=== PATIENT | male | born 1950 | race Caucasian/White ===

== ENCOUNTER 2022-12-14 14:12 | Emergency (ER) | payer OTHER ==
[~2022-12-14] VITALS: Ht 170.2 cm; Wt 118.0 kg
[~2022-12-14 14:12] MED LIST: atenolol
[2022-12-14 17:13] LABS: PROTHROMBIN TIME 10.4 sec (9.6-11.0)
[2022-12-14 17:19] LABS: CHLORIDE 106 mEq/L (98-107)
[2022-12-14 17:23] LABS: HEMATOCRIT. 46.4 % (42.0-52.0); HEMOGLOBIN. 15.9 g/dL (14.0-18.0); MEAN CORPUSCULAR HEMOGLOBIN 29.8 pg (28.0-32.0); MEAN CORPUSCULAR VOLUME 86.9 fL (80.0-94.0); RED BLOOD CELL COUNT 5.34 mill/uL (4.7-6.1)
[2022-12-14 17:28] LABS: CREATINE KINASE 70 IU/L (39-308)
[2022-12-14 17:55] VITALS: BP 146/76
[2022-12-14] MEDS ORDERED: DEXTROSE 50% WATER 50ML SYRINGE IV ONE (18:45)
[2022-12-14 19:22] LABS: CLARITY URINE CLEAR (CLEAR); COLOR URINE YELLOW (YELLOW); KETONES URINE NEGATIVE (NEGATIVE); LEUKOCYTE ESTERASE URINE NEGATIVE (NEGATIVE); NITRITE URINE NEGATIVE (NEGATIVE); OCCULT BLOOD URINE NEGATIVE (NEGATIVE); PH URINE 6.5 (4.5-8.0); PROTEIN URINE NEGATIVE (NEGATIVE); SPECIFIC GRAVITY URINE 1.007 (1.005-1.030); UROBILINOGEN URINE 0.2 E.U./dL (0.2-1.0)
[2022-12-14 22:45] LABS: MEAN PLATELET VOLUME 8.3 fl (7.4-10.4); PLATELET 302 x1000/uL (130-400); PLATELET ESTIMATE NORMAL
== END 2022-12-14 20:44 | disposition home or self-care (01) ==
LOC: ER 14:12
DX: R53.83 Other fatigue (principal); I25.2 Old myocardial infarction; I10 Essential (primary) hypertension; E78.00 Pure hypercholesterolemia, unspecified; R51.9 Headache, unspecified; Z20.822 Contact with and (suspected) exposure to COVID-19
CPT/HCPCS: 36415; 70450; 71045; 80053; 81003; 82550; 83605; 83880; 84145; 84484; 85025; 85610; 87040; 87426; 93005; 99285; C9803